=== PATIENT | female | born 1975 | race Caucasian/White ===

== ENCOUNTER 2019-11-04 03:39 | Emergency (ER) | payer OTHER, SELFPAY ==
[2019-11-04 03:40] VITALS: BP 120/74; PULSE 87; RESP 20; TEMP 36.8; O2SAT 98
--- NOTE | 2019-11-04 03:54 | ED.HA ---
HPI - Headache General Chief Complaint: Headache Stated Complaint: headache Time Seen by Provider: 11/04/19 03:54 Source: patient and RN notes reviewed Mode of arrival: ambulatory Limitations: no limitations History of Present Illness MD elicited complaint: migraine Pertinent past history: migraines Onset (ago): day(s) (2) Onset description: gradually Location: frontal Severity: moderate Quality & Timing: throbbing, dull and pressure Exacerbating factors: movement of head/neck and noise Relieving factors: nothing Context: occurred at rest Associated symptoms: nausea and neck stiffness Treatments prior to arrival: acetaminophen Related Data Allergies Allergy/AdvReac Type Severity Reaction Status Date / Time No Known Allergies Allergy Mild Unverified 09/22/19 10:26 Review of Systems Review of Systems: All systems reviewed & are unremarkable except as noted in HPI and below Constitutional: Constitutional: Denies chills, Denies fever(s) and Denies weakness Eyes: Eyes: Denies change in vision ENT: Reports system reviewed and no additional complaints, except as documented Cardiovascular: Cardiovascular: Reports no additional cardiovascular complaints Respiratory: Respiratory: Reports no additional respiratory complaints Gastrointestinal: Gastrointestinal: Reports no additional gastrointestinal complaints Genitourinary: Genitourinary: Reports no additional female genitourinary complaints Musculoskeletal: Musculoskeletal: Reports no additional musculoskeletal complaints PMFSH Past Medical History Medical History Body mass index (bmi) 30.0-30.9, adult (04/30/18) Chronic systolic (congestive) heart failure Hypersomnia Migraine Obstructive sleep apnea Systolic heart failure Surgical History Surgical History H/O section History of gastric surgery Family History Family History Father Hypertension Family history of malignant neoplasm Grandparent Cerebrovascular accident Family history of malignant neoplasm of cervix Family history of coronary artery disease Family history of malignant neoplasm of ovary Family history of malignant neoplasm Mother Family history of migraine headaches Social History Social History Smoking status: Former smoker Second hand tobacco smoke exposure: No Alcohol intake: never Exam Const: General: healthy appearing, no acute distress and alert Nutritional Appearance: well nourished Orientation/consciousness: patient oriented x3 HENMT: Head: normal to inspection Ears: TM's normal bilaterally General nose exam: Normal external nose present Face and sinus: normal facial exam Mouth: Yes Normal oral and palatal mucosa present Eyes: Conjunctivae: conjunctivae normal Pupils: Equal, round and reactive pupils present EOM: EOMs intact bilaterally Direct Ophthalmoscopy: No photophobia Neck: Neck: normal visual inspection and no meningeal signs Resp: Effort & Inspection: normal respiratory effort Auscultation: clear to auscultation bilaterally Cardio: Rate: regular rate Rhythm: regular rhythm GI: GI Palp: Yes Soft to palpation Auscultation: normal bowel sounds Back/Spine/Pelvis: Cervical Spine: cervical ROM normal Thoracic/Lumbar Spine: thoraco-lumbar ROM normal Skin: General skin exam: normal color Rashes: no rashes Neuro: General: patient oriented x3, moves all extremities, no meningeal signs and no focal motor deficits Speech: normal speech Gait exam (Neuro): Normal gait present Extrem: General: normal to inspection Psych: Appearance: grossly normal and well kempt Mental Status: mental status grossly normal Affect: normal affect Attitude: cooperative Thought content: Yes Normal thought content present Course Vital Signs Vital sig
[2019-11-04] MEDS: KETOROLAC (*BKC) 60 MG/2 ML VIAL IM (03:56)
[2019-11-04 04:18] VITALS: BP 128/71; PULSE 85; RESP 20; TEMP 36.7; O2SAT 99
== END 2019-11-04 04:19 | disposition home or self-care (01) ==
PROVIDERS: Emergency Provider Emergency Medicine
DX: G43.909 Migraine, unspecified, not intractable, without status migrainosus (principal)
CPT/HCPCS: 96372; 99282; 99283; J1885

== ENCOUNTER 2019-11-04 13:47 | Emergency (ER) | payer OTHER, SELFPAY ==
--- NOTE | ~2019-11-04 | CT_ITS ---
EXAMINATION: CTA brain carotid DATE: 11/04/2019 17:13 INDICATION: Severe headache TECHNIQUE: Computed tomographic angiography (CTA) of the head was performed without and with 100 mL O mnipaque-350 intravenous contrast. CTA of the neck was performed with intravenous contrast. The dose- length product was 1714.68 mGy-cm. Maximum intensity projection and volume rendered 3D-reconstruction s were created by the technologist on a separate workstation. Automated exposure control and iterativ e reconstruction technique were employed. COMPARISON: None. FINDINGS: HEAD CTA: There is no intracranial hemorrhage, acute infarction, or abnormal mass lesion. The ventri cles are normal. There is no abnormal mass effect or midline shift. The turcios-white matter differentia tion is normal. The basal cisterns are patent. The orbits are normal. The paranasal sinuses, mastoids and calvarium are normal. There is no significant stenosis of the basilar artery or posterior cerebral arteries. There is no si gnificant stenosis of the intracranial internal carotid arteries or the anterior or middle cerebral a rteries. The anterior communicating artery and posterior communicating arteries are normal. There is no aneurysm. NECK CTA: The thyroid gland is unremarkable. The submandibular and parotid glands are symmetric. Ther e is no lymphadenopathy. There are no masses identified. The airways unremarkable. There are no osseo us abnormalities. The superior mediastinum is unremarkable. The right vertebral artery is hypoplastic . There is 0% stenosis of the proximal right internal carotid artery relative to normal distal artery l umen diameter (NASCET criteria). There is 0% stenosis of the proximal left internal carotid artery re lative to normal distal artery lumen diameter. IMPRESSION: 1. No acute intracranial abnormality. Normal head CTA. 2. 0% stenosis of the proximal right internal carotid artery relative to normal distal artery lumen d iameter (NASCET criteria). 3. 0% stenosis of the proximal left internal carotid artery relative to normal distal artery lumen di ameter. Reviewed, dictated and finalized at location A. IMPRESSION: 1. No acute intracranial abnormality. Normal head CTA. 2. 0% stenosis of the proximal right internal carotid artery relative to normal distal artery lumen diameter (NASCET criteria). 3. 0% stenosis of the proximal left internal carotid artery relative to normal distal artery lumen diameter.
[2019-11-04 14:01] VITALS: BP 127/89; PULSE 86; RESP 18; TEMP 36.8; O2SAT 100
[2019-11-04] MEDS: KETOROLAC 30 MG/ML VIAL (*BKC) IV PUSH (15:14)
[2019-11-04] MEDS: PROCHLORPERAZINE EDISYLATE 10 MG/2 ML VIAL IV PUSH (15:15)
[2019-11-04] MEDS: SUMAtriptan SUCCINATE 6 MG/0.5 ML VIAL SUB-Q (15:16)
[2019-11-04] MEDS: FAMOTIDINE 20 MG/2 ML VIAL IV PUSH (15:18)
[2019-11-04 15:25] LABS: Basophils Percent Auto 0.3 % (0.2-1.2); Eosinophils Absolute Auto 0.2 K/mm3 (0-0.3); Eosinophils Percent Auto 1.7 % (0-4.4); Hematocrit 41.9 % (37.0-47.0); Hemoglobin 14.4 g/dL (12.0-15.0); Immature Granulocyte Absolute 0.02 K/mm3 (0.00-0.031); Immature Granulocyte Percent A 0.2 % (0-0.5); Lymphocytes Absolute Auto 1.65 K/mm3 (0.9-3.2); Lymphocytes Percent Auto 19.1 % (18.3-44.2); Mean Corpuscular HGB Conc 34.4 g/dl (32-36); Mean Corpuscular Hemoglobin 31.7 pg (26-34); Mean Corpuscular Volume 92.3 fl (80-100); Mean Platelet Volume 9.4 fl (7.4-10.4); Monocytes Absolute Auto 0.7 K/mm3 (0.1-0.6); Monocytes Percent Auto 8.2 % (2.6-8.5); Neutrophils Absolute Auto 6.1 K/mm3 (1.3-6.7); Neutrophils Percent Auto 70.5 % (45.5-73.1); Platelet Count Result 200 k/mm3 (150-375); Red Blood Count 4.54 M/mm3 (4.2-5.4); Red Cell Distribution Width 12.1 % (11.5-14.5); White Blood Count 8.6 K/mm3 (4.5-10.0)
[2019-11-04 15:32] LABS: Partial Thromboplastin Time 26.9 SECONDS (22.3-36.8)
[2019-11-04 15:39] LABS: Alanine Aminotransferase 13 U/L (4-35); Albumin Level 4.5 g/dL (3.5-5.1); Alkaline Phosphatase 60 U/L (38-126); Aspartate Amino Transferase 20 U/L (14-36); Bilirubin,Total 0.3 mg/dL (0.2-1.3); Blood Urea Nitrogen 23 mg/dL (7-17); CRP < 0.5 mg/dL (<1.0); Calcium 9.9 mg/dL (8.4-10.2); Carbon Dioxide 22 mmol/L (22-30); Chloride 105 mmol/L (98-107); Estimated CRCL calculation 107 ml/min; Estimated Glomerular Filt Rate > 60; Glucose 95 mg/dL (65-105); Potassium 4.2 mmol/L (3.4-5.0); Sodium 135 mmol/L (137-145)
[2019-11-04] MEDS: SODIUM CHLORIDE 0.9% IV 1,000 ML 125 ML (15:47)
[2019-11-04 16:31] LABS: Add Urine Microscopic? YES; Appearance Urine Clear (Clear); Bacteria Urine Trace /hpf; Bilirubin Urine Negative (Negative); Blood Urine Negative (Negative); Color Urine Yellow (Yellow); Glucose Urine UA Negative (Negative); Ketones Urine Negative (Negative); Leukocyte Esterase Ur Negative LEU/UL (Negative); Mucus Urine Heavy /lpf; Nitrate Urine Negative (Negative); Protein Urine 2+ mg/dL (Negative); RBC Urine 0-2 /hpf (0-2); Specific Grav Ur 1.018 (1.001-1.035); Squamous Epithelial Cell Urine Many /hpf (Few); Urobilinogen Urine Negative mg/dL (<2.0); WBC Urine 0-3 /hpf
--- NOTE | 2019-11-04 16:36 | ED.GENADULT ---
HPI - General Adult General Chief complaint: Headache Stated complaint: Severe migraine for 32 hours Time Seen by Provider: 11/04/19 14:33 Source: patient Mode of arrival: ambulatory Limitations: no limitations History of Present Illness HPI narrative: Patient is a 44-year-old female who presents to emergency department for evaluation of frontal migraine headache with history of migraines has not had one in 5 years patient was seen at [facility] last night due to the increasing pain notes that the pain is now into her neck. Patient denies injury trauma or illness was given Toradol with some minimal improvement sent home and returns with continued headache and neck pain. Patient denies vomiting diarrhea paresthesias Related Data Allergies Allergy/AdvReac Type Severity Reaction Status Date / Time No Known Allergies Allergy Mild Unverified 09/22/19 10:26 Review of Systems Review of Systems: All systems reviewed & are unremarkable except as noted in HPI and below PMFSH Past Medical History Medical History Body mass index (bmi) 30.0-30.9, adult (04/30/18) Chronic systolic (congestive) heart failure Hypersomnia Migraine Obstructive sleep apnea Systolic heart failure Surgical History Surgical History H/O section History of gastric surgery Social History Social History Smoking status: Former smoker Second hand tobacco smoke exposure: No Alcohol intake: never Exam Narrative: Exam Narrative: GENERAL: Well-appearing, well-nourished, and in no acute distress. HEAD: Normocephalic, atraumatic. EYES: PERRLA and EOMI. ENT: Nares clear, no rhinorrhea or epistaxis. Mucous membranes moist. Oropharynx without tonsillar hypertrophy exudate or other lesions. Bilateral TMs nonerythematous nonbulging slightly difficult to visualize on the right due to cerumen NECK: Supple. No adenopathy or masses. CHEST: Clear to auscultation. No respiratory distress. No wheezes rales or rhonchi HEART: Regular rate and rhythm. No murmur heard. Normal peripheral pulses. ABDOMEN: Soft, nontender, nondistended EXTREMITIES: Normal range of motion. No edema. Tenderness of the cervical spine no deformity noted SKIN: Warm, dry, no rash. NEURO: No focal deficits. Alert and oriented x3. Cranial nerves II through XII grossly intact. Normal speech. Motor and sensory intact and symmetrical in the extremities PSYCH: Normal mood and affect. Course Course Emergency Course: Patient in the room resting comfortably aware of case findings treatment plan and diagnosis Vital Signs Vital signs: Vital Signs Temperature 98.2 F 11/04/19 14:01 Pulse Rate 86 11/04/19 14:01 Respiratory Rate 18 11/04/19 14:01 Blood Pressure 127/89 11/04/19 14:01 Pulse Oximetry 100 11/04/19 14:01 Temperature 98.2 F 11/04/19 17:27 Pulse Rate 69 11/04/19 17:30 Respiratory Rate 18 11/04/19 17:30 Blood Pressure 114/64 11/04/19 17:30 Pulse Oximetry 100 11/04/19 17:30 Medical Decision Making MDM Narrative Medical decision making narrative: Patient in the room aware of case findings treatment plan and diagnosis feeling better with interventions resting comfortably sleeping in the emergency department. There are n the admitting the o focal neurological deficits on exam. Subarachnoid hemorrhage is felt to be unlikey at this time. There is no history of fever, and neck is supple without meningismus, making meningitis unlikely. No traumatic history or signs of trauma on exam. No risk factors for CVA, risk factors reviewed. NO ocular signs on exam and in history to suggest acute glaucoma. Patients headache is felt to be a reasonable candidate for outpatient evaluation Vital Signs Vital Signs: Vital Signs Temperature 98.2 F 11/04/19 14:01 Pulse Rate 86 11/04/19 14:01 Res
[2019-11-04 16:47] LABS: Amphetamine Screen Urine Negative (Negative); Barbiturate Screen Urine Negative (Negative); Benzodiazepines Screen Urine Positive (Negative); Cannabinoid Screen Urine Negative (Negative); Cocaine Screen Urine Negative (Negative); Methadone Screen Urine Negative (Negative); Opiate Screen Urine Negative (Negative); Phencyclidine Screen Urine Negative (Negative)
[2019-11-04 17:27] VITALS: BP 114/64; PULSE 65; RESP 30; TEMP 36.8; O2SAT 98
[2019-11-04 17:30] VITALS: BP 114/64; PULSE 69; RESP 18; O2SAT 100
--- NOTE | 2019-11-11 10:31 | PC.NURSE ---
LATE ENTRY----- Pts Normal saline was stopped at 2015. Pt received 1000ml
== END 2019-11-04 19:07 | disposition home or self-care (01) ==
PROVIDERS: Emergency Medicine Emergency Medical Services; Emergency Provider Emergency Medicine; PCP Family Medicine
DX: R51 Headache (principal); I50.22 Chronic systolic (congestive) heart failure; G47.33 Obstructive sleep apnea (adult) (pediatric); Z87.891 Personal history of nicotine dependence; Z98.84 Bariatric surgery status
CPT/HCPCS: 36415; 70496; 70498; 80053; 80307; 81001; 81025; 85025; 85610; 85730; 86140; 96361; 96372; 96374; 96375; 99284; J0780; J1885; J3030; J3360; J7030; Q9967

== ENCOUNTER 2020-07-31 12:42 | Outpatient (CLI) | payer BC, SELFPAY ==
--- NOTE | 2020-07-31 12:46 | ECHO_ITS ---
Patient Info Name: Ryan Azul Age: 45 years : 1975 Gender: Female Ht: 66 in Wt: 250 lbs BSA: 2.35 m2 HR: 82 bpm BP: 114 / 84 mmHg Technical Quality: Good Exam Date: 07/31/2020 1:00 PM Exam Location: [facility] Patient Status: Outpatient Admit Date: 07/31/2020 Staff Ordering Physician: Yunier Sweeney DO Quality Assurance Tech: Cassidy Campo RDCS Attending Provider: Yunier Sweeney DO Referring Physician: Patel VALENZUELA; Exam Type: CA echo doppler color flow Study Info Indications I42.8 - Other cardiomyopathies Complete two-dimensional, color flow and Doppler transthoracic echocardiogram is performed. Summary 1. Complete two-dimensional, color flow and Doppler transthoracic echocardiogram is performed. 2. Left ventricular chamber dimension is normal. 3. Left ventricular systolic function is normal, estimated at 55-60%. 4. The left ventricular diastolic function is grade I diastolic dysfunction. 5. E/e' 6 is not elevated. 6. Global longitudinal strain is abnormal at -15.3%. 7. There is trace tricuspid valve regurgitation. 8. No pulmonary hypertension, estimated pulmonary arterial systolic pressure is 26 mmHg. Left Ventricle E/e' 6 is not elevated. Global longitudinal strain is abnormal at -15.3%. Left ventricular chamber dimension is normal. Left ventricular systolic function is normal, estimated at 55-60%. The left ventricular diastolic function is grade I diastolic dysfunction. Right Ventricle Right ventricular chamber dimension is normal. Right ventricular systolic function is normal. Left Atria Left atrial chamber dimension is normal. Right Atria Right atrial chamber dimension is normal. Aortic Valve The aortic valve is trileaflet. There is no aortic valve stenosis. There is no aortic valve regurgitation. Pulmonic Valve There is no pulmonic regurgitation. Mitral Valve There is no mitral valve stenosis. There is no mitral valve regurgitation. Tricuspid Valve There is trace tricuspid valve regurgitation. No pulmonary hypertension, estimated pulmonary arterial systolic pressure is 26 mmHg. Pericardium/Pleural There is no pericardial effusion. Inferior Vena Cava Normal inferior vena cava with >50% collapse upon inspiration consistent with normal right atrial pressure, 5 mmHg. Aorta The aortic root size at the sinus of Valsalva is normal. Left Ventricular Outflow Tract Name Value Normal LVOT 2D LVOT Diameter 2.0 cm LVOT Doppler LVOT Peak Gradient 4 mmHg LVOT Mean Gradient 3 mmHg LVOT VTI 18 cm LVOT VTI/AV VTI Ratio 0.8 LVOT Stroke Volume 59 ml LVOT CO 4.9 l/min LVOT CI 2.1 l/min/m2 Pulmonic Valve Name Value Normal RVOT Doppler
== END 2020-07-31 12:43 | disposition home or self-care (01) ==
PROVIDERS: PCP Family Medicine; Visit Provider Internal Medicine Cardiovascular Disease
DX: I42.8 Other cardiomyopathies (principal)
CPT/HCPCS: 93306

== ENCOUNTER 2020-10-04 12:41 | Emergency (ER) | payer BC, SELFPAY ==
--- NOTE | 2020-10-04 12:49 | ECG_ITS ---
Measurements Intervals [place] Rate: 70 P: 33 OK: 160 QRS: 26 QRSD: 85 T: 15 QT: 362 QTc: 391 Interpretive Statements SINUS RHYTHM DELAYED PRECORDIAL R/S TRANSITION BASELINE ARTIFACT- II, III, AVL BORDERLINE ECG Electronically Signed On 10-04-2020 13:40:23 CDT by Yunier Sweeney D.O.
--- NOTE | 2020-10-04 12:49 | ED.PSYCH ---
HPI - Psych General Chief Complaint: Psychiatric Symptoms Stated Complaint: psych evaluation Time Seen by Provider: 10/04/20 12:49 Source: patient Mode of arrival: ambulatory Limitations: no limitations History of Present Illness HPI Narrative: 45-year-old woman with a history of anxiety and PTSD brought to the emergency department by law enforcement after having told her and the officer that she wanted to harm herself. She told her that she wanted to kill herself, took a gun safe from the house, drove to her brother's great side, where she was found by law enforcement. The gun was still in her car. Patient states that she is tearful and she has been under lot of stress. She states that she was suicidal as a teenager but has never had any psych hospitalizations. She states that she took 0.5 of Ativan this morning. It was prescribed by her doctor for anxiety. Patient states she last saw counselor for her symptoms 4 years ago. She stopped counseling because she could not afford it. MD complaint: suicidal ideation Onset (ago): day(s) Duration: intermittent Relieving factors: none Associated psychiatric symptoms: suicidal ideation If self harm: admits thoughts of self harm and has plan (Guns) Related Data Home Medications Medication Instructions Recorded Confirmed lorazepam 0.25 mg PO DAILY 10/04/20 10/04/20 Allergies Allergy/AdvReac Type Severity Reaction Status Date / Time No Known Allergies Allergy Mild Unverified 10/04/20 13:56 Review of Systems Review of Systems: All systems reviewed & are unremarkable except as noted in HPI and below Constitutional: Constitutional: Denies chills and Denies fever(s) Eyes: Eyes: Denies change in vision and Denies photophobia ENT: Denies nasal congestion and Denies sore throat Cardiovascular: Cardiovascular: Denies chest pain and Denies radiating jaw, neck or arm pain Respiratory: Respiratory: Denies cough, Denies dyspnea and Denies wheezing Gastrointestinal: Gastrointestinal: Denies abdominal pain, Denies diarrhea, Denies nausea and Denies vomiting Genitourinary: Genitourinary: Denies hematuria, Denies nocturia and Denies dysuria Musculoskeletal: Musculoskeletal: Denies back pain, Denies arthralgias and Denies joint swelling Integumentary/Breasts: Skin/Breast: Denies pruritus, Denies erythema and Denies rash Neurologic: Denies vertigo, Denies dizziness and Denies syncope Hematologic/Lymphatic: Hematologic/Lymphatic: Denies easy bleeding and Denies easy bruising Allergic/Immunologic: Allergic/Immunologic: Denies throat swelling and Denies tongue swelling PMFSH Past Medical History Medical History (Updated 10/04/20 @ 16:28 by Anatoliy Sahni MD) Body mass index (bmi) 30.0-30.9, adult (04/30/18) Chronic systolic (congestive) heart failure Hypersomnia Migraine Obstructive sleep apnea PTSD (post-traumatic stress disorder) Systolic heart failure Surgical History Surgical History H/O section History of gastric surgery Family History Family History Father Hypertension Family history of malignant neoplasm Grandparent Cerebrovascular accident Family history of malignant neoplasm of cervix Family history of coronary artery disease Family history of malignant neoplasm of ovary Family history of malignant neoplasm Mother Family history of migraine headaches Social History Social History Smoking status: Former smoker Second hand tobacco smoke exposure: No Alcohol intake: never Substance use type: prescription drug Gender identity (if verbalized by the patient): Male Exam Const: General: alert Orientation/consciousness: patient oriented x3 Limitations: no limitations Other: Anxious, tearful Eyes: Conjunctivae: conjunctivae normal Pupils: Equa
[2020-10-04 13:03] LABS: Basophils Absolute Auto 0.02 K/mm3 (0.00-0.10); Basophils Percent Auto 0.4 % (0.0-1.0); Eosinophils Absolute Auto 0.19 K/mm3 (0.02-0.50); Eosinophils Percent Auto 3.4 % (1.0-6.0); Hematocrit 39.5 % (35.0-49.0); Hemoglobin 13.6 g/dL (12.0-15.0); Immature Granulocyte Absolute 0.02 K/mm3 (0.00-0.00); Immature Granulocyte Percent A 0.4 % (0.0-0.0); Lymphocytes Absolute Auto 1.94 K/mm3 (1.10-4.50); Lymphocytes Percent Auto 34.3 % (18.0-42.0); Mean Corpuscular HGB Conc 34.4 g/dL (32.0-36.0); Mean Corpuscular Hemoglobin 31.9 pg (27.0-31.0); Mean Corpuscular Volume 92.7 fL (78.0-102.0); Mean Platelet Volume 9.6 fl (9.2-11.8); Monocytes Absolute Auto 0.43 K/mm3 (0.10-0.90); Monocytes Percent Auto 7.6 % (2.0-11.0); Neutrophils Absolute Auto 3.1 K/mm3 (1.7-7.2); Neutrophils Percent Auto 53.9 % (50.0-70.0); Platelet Count Result 254 K/mm3 (150-420); Red Blood Count 4.26 M/mm3 (4.20-5.40); Red Cell Distribution Width 11.9 % (11.6-14.4); White Blood Count 5.7 K/mm3 (4.8-10.8)
[2020-10-04 13:28] VITALS: BP 123/67; PULSE 60; RESP 20; TEMP 36.2; O2SAT 96
[2020-10-04 13:29] LABS: Alanine Aminotransferase 21 U/L (14-59); Albumin Level 4.1 g/dL (3.4-5.0); Alkaline Phosphatase 57 U/L (46-116); Anion Gap 8 mmol/L (8-16); Aspartate Amino Transferase 11 U/L (15-37); Bilirubin,Total 0.3 mg/dL (0.00-1.00); Blood Urea Nitrogen 26 mg/dL (7-18); Calcium 9.5 mg/dL (8.5-10.1); Carbon Dioxide 29 mmol/L (21-32); Chloride 102 mmol/L (98-108); Estimated Glomerular Filt Rate > 60; Glucose 97 mg/dL (70-99); Osmolality Calculated 292 mOsm/kg (285-295); Potassium 4.1 mmol/L (3.5-5.1); Sodium 139 mmol/L (136-145); Thyroid Stimulating Hormone 1.23 uIU/mL (0.36-3.74)
[2020-10-04 13:31] LABS: Acetaminophen < 2 ug/mL (10-30); Ethanol < 3 mg/dL (0-6); Salicylate 1.9 mg/dL (2.8-20.0)
[2020-10-04 13:56] LABS: Bilirubin Urine Negative (Negative); Blood Urine Negative (Negative); Color Urine Yellow (Yellow); Glucose Urine UA Negative (Negative); Ketones Urine Negative (Negative); Leukocyte Esterase Ur Negative LEU/UL (Negative); Nitrate Urine Negative (Negative); Protein Urine Negative (Negative); Specific Grav Ur >= 1.030 (1.010-1.020); Urobilinogen Urine 0.2 mg/dL (0.2-1.0); pH Urine 5.5 (5.0-8.0)
[2020-10-04 13:58] LABS: Add Urine Microscopic? NO; Appearance Urine Clear (Clear)
[2020-10-04 14:02] LABS: Amphetamine Screen Urine Negative (Negative); Barbiturate Screen Urine Negative (Negative); Benzodiazepines Screen Urine Negative (Negative); Cannabinoid Screen Urine Negative (Negative); Cocaine Screen Urine Negative (Negative); Methadone Screen Urine Negative (Negative); Opiate Screen Urine Negative (Negative); Phencyclidine Screen Urine Negative (Negative)
--- NOTE | 2020-10-04 15:03 | PC.NURSE ---
3621 [facility] CALLED FOR CRISIS ASSESMENT
[2020-10-04 15:26] LABS: SARS-CoV-2 RNA PCR Negative (Negative)
--- NOTE | 2020-10-04 16:37 | PC.NURSE ---
1515 [facility]LEX STEVENSON HERE TO EVALUATE PT AND SPEAK WITH
[2020-10-04 16:54] VITALS: BP 119/69; PULSE 71; RESP 20; TEMP 36.7; O2SAT 100
== END 2020-10-04 17:01 | disposition home or self-care (01) ==
PROVIDERS: Emergency Provider Emergency Medicine; PCP Family Medicine
DX: R45.851 Suicidal ideations (principal); Z87.891 Personal history of nicotine dependence
CPT/HCPCS: 36415; 80053; 80307; 81003; 84443; 85025; 93005; 99283; 99284; C9803; U0003; U0005

== ENCOUNTER 2022-09-04 09:58 | Outpatient (CLI) | payer BC, SELFPAY ==
[2022-09-04 11:07] LABS: Alanine Aminotransferase 18 U/L (14-59); Albumin Level 3.8 g/dL (3.4-5.0); Alkaline Phosphatase 77 U/L (46-116); Anion Gap 6 mmol/L (8-16); Aspartate Amino Transferase 16 U/L (15-37); Bilirubin,Total 0.3 mg/dL (0.00-1.00); Blood Urea Nitrogen 23 mg/dL (7-18); Calcium 9.2 mg/dL (8.5-10.1); Carbon Dioxide 28 mmol/L (21-32); Chloride 103 mmol/L (98-108); Cholesterol 213 mg/dL (0-200); Estimated Glomerular Filt Rate > 60; Glucose 88 mg/dL (70-99); HDL Direct 65 mg/dL (40-60); LDL Cholesterol Calculated 126 mg/dL (<130); Osmolality Calculated 286 mOsm/kg (285-295); Potassium 4.8 mmol/L (3.5-5.1); Sodium 137 mmol/L (136-145); Total Protein 7.3 g/dL (6.4-8.2); Triglycerides 110 mg/dL (0-150)
== END 2022-09-04 09:59 | disposition home or self-care (01) ==
LOC: CHSLAB 10:00
PROVIDERS: PCP Family Medicine; Visit Provider Family Medicine
DX: E78.5 Hyperlipidemia, unspecified (principal)
CPT/HCPCS: 36415; 80053; 80061

== ENCOUNTER 2023-07-03 14:56 | Outpatient (CLI) | payer BC, SELFPAY ==
[2023-07-03 15:11] LABS: Basophils Absolute Auto 0.02 K/mm3 (0.00-0.10); Basophils Percent Auto 0.3 % (0.0-1.0); Eosinophils Percent Auto 2.8 % (1.0-6.0); Hematocrit 37.5 % (35.0-49.0); Hemoglobin 12.5 g/dL (12.0-15.0); Immature Granulocyte Absolute 0.02 K/mm3 (0.00-0.00); Immature Granulocyte Percent A 0.3 % (0.0-0.0); Lymphocytes Absolute Auto 1.82 K/mm3 (1.10-4.50); Lymphocytes Percent Auto 25.3 % (18.0-42.0); Mean Corpuscular HGB Conc 33.3 g/dL (32.0-36.0); Mean Corpuscular Hemoglobin 31.5 pg (27.0-31.0); Mean Corpuscular Volume 94.5 fL (78.0-102.0); Mean Platelet Volume 9.1 fl (9.2-11.8); Monocytes Absolute Auto 0.61 K/mm3 (0.10-0.90); Monocytes Percent Auto 8.5 % (2.0-11.0); Neutrophils Absolute Auto 4.5 K/mm3 (1.7-7.2); Neutrophils Percent Auto 62.8 % (50.0-70.0); Platelet Count Result 224 K/mm3 (150-420); Red Blood Count 3.97 M/mm3 (4.20-5.40); White Blood Count 7.2 K/mm3 (4.8-10.8)
[2023-07-03 15:39] LABS: Alanine Aminotransferase 15 U/L (14-59); Albumin Level 3.5 g/dL (3.4-5.0); Alkaline Phosphatase 60 U/L (46-116); Anion Gap 10 mmol/L (8-16); Aspartate Amino Transferase < 10 U/L (15-37); Bilirubin,Total 0.2 mg/dL (0.00-1.00); Blood Urea Nitrogen 22 mg/dL (7-18); Calcium 8.8 mg/dL (8.5-10.1); Carbon Dioxide 28 mmol/L (21-32); Chloride 104 mmol/L (98-108); Estimated Glomerular Filt Rate > 60; Glucose 82 mg/dL (70-99); Osmolality Calculated 296 mOsm/kg (285-295); Potassium 4.4 mmol/L (3.5-5.1); Sodium 142 mmol/L (136-145); Total Protein 6.6 g/dL (6.4-8.2)
== END 2023-07-03 14:57 | disposition home or self-care (01) ==
LOC: CHSLAB 15:00
PROVIDERS: PCP Family Medicine; Visit Provider Family Medicine
DX: I42.9 Cardiomyopathy, unspecified (principal)
CPT/HCPCS: 36415; 80053; 85025

== ENCOUNTER 2024-01-30 08:03 | Outpatient (CLI) | payer BC, SELFPAY ==
[2024-01-30 08:19] LABS: Basophils Absolute Auto 0.03 K/mm3 (0.00-0.10); Basophils Percent Auto 0.5 % (0.0-1.0); Eosinophils Absolute Auto 0.19 K/mm3 (0.02-0.50); Eosinophils Percent Auto 3.1 % (1.0-6.0); Hematocrit 36.9 % (35.0-49.0); Hemoglobin 12.4 g/dL (12.0-15.0); Immature Granulocyte Absolute 0.02 K/mm3 (0.00-0.00); Immature Granulocyte Percent A 0.3 % (0.0-0.0); Lymphocytes Absolute Auto 1.89 K/mm3 (1.10-4.50); Lymphocytes Percent Auto 30.7 % (18.0-42.0); Mean Corpuscular HGB Conc 33.6 g/dL (32-36); Mean Corpuscular Hemoglobin 31.3 pg (27.0-31.0); Mean Corpuscular Volume 93.2 fL (78.0-102.0); Mean Platelet Volume 8.8 fl (9.2-11.8); Monocytes Absolute Auto 0.52 K/mm3 (0.10-0.90); Monocytes Percent Auto 8.4 % (2.0-11.0); Neutrophils Absolute Auto 3.51 K/mm3 (1.70-7.20); Platelet Count Result 240 K/mm3 (150-420); Red Blood Count 3.96 M/mm3 (4.20-5.40); White Blood Count 6.2 K/mm3 (4.8-10.8)
[2024-01-30 08:56] LABS: Alanine Aminotransferase 14 U/L (14-59); Albumin Level 3.5 g/dL (3.4-5.0); Alkaline Phosphatase 62 U/L (46-116); Anion Gap 7 mmol/L (4-12); Aspartate Amino Transferase < 10 U/L (15-37); Bilirubin,Total 0.4 mg/dL (0.00-1.00); Blood Urea Nitrogen 23 mg/dL (7-18); Calcium 8.8 mg/dL (8.5-10.1); Carbon Dioxide 28 mmol/L (21-32); Chloride 104 mmol/L (98-108); Cholesterol 171 mg/dL (0-200); Estimated Glomerular Filt Rate > 60; Glucose 91 mg/dL (70-99); HDL Direct 70 mg/dL (40-60); LDL Cholesterol Calculated 90 mg/dL (<130); Osmolality Calculated 291 mOsm/kg (285-295); Potassium 4.2 mmol/L (3.5-5.1); Sodium 139 mmol/L (136-145); Total Protein 6.5 g/dL (6.4-8.2); Triglycerides 56 mg/dL (0-150)
== END 2024-01-30 08:04 | disposition home or self-care (01) ==
PROVIDERS: PCP Family Medicine; Visit Provider Family Medicine
DX: E66.01 Morbid (severe) obesity due to excess calories (principal)
CPT/HCPCS: 36415; 80053; 80061; 83036; 85025